=== PATIENT | female | born 1995 | race American Indian/Alaskan Native ===

== ENCOUNTER 2019-12-13 19:41 | Emergency (ER) | payer BC ==
[2019-12-13 21:31] VITALS: BP 150/92
--- NOTE | 2019-12-13 21:34 | Emergency Department Report ---
Blank Doc - Documentation Documentation: This is a 36-year-old male that presents with concerned manic attack. Denies any SI/HI. This initial assessment/diagnostic orders/clinical plan/treatment(s) is/are subject to change based on patient's health status, clinical progression and re- assessment by fellow clinical providers in the ED. Further treatment and workup at subsequent clinical providers discretion. Patient/guardians urged not to elope from the ED as their condition may be serious if not clinically assessed and managed. Initial orders include: 1- Patient sent to MAIN ED for further evaluation and treatment 2- orchard manager was notified to have patient be brought back [facility]. 3- RN was notified to keep patient as close range and observation until room available
[2019-12-13 22:35] LABS: Blood Urea Nitrogen 5 mg/dL (7-17); Calcium 9.6 mg/dL (8.4-10.2); Hemolysis Index 2
[2019-12-13 22:41] LABS: Amphetamine Screen,Urine PRESUMPTIVE NEGATIVE; Benzodiazepines Screen,Urine PRESUMPTIVE NEGATIVE; Cannabinoid Screen,Urine PRESUMPTIVE NEGATIVE; Cocaine Screen,Urine PRESUMPTIVE NEGATIVE; Methadone Screen,Urine PRESUMPTIVE NEGATIVE; Opiate Screen,Urine PRESUMPTIVE NEGATIVE
[2019-12-13 22:46] LABS: BUN/Creatinine Ratio 8
[2019-12-13 22:52] LABS: Basophils # (Auto) 0.1 K/mm3 (0.0-0.1); Basophils % (Auto) 0.8 % (0.0-1.8); Eosinophils # (Auto) 0.2 K/mm3 (0.0-0.4); Eosinophils % (Auto) 2.6 % (0.0-4.3); Hematocrit 39.6 % (30.3-42.9); Hemoglobin 12.9 gm/dl (10.1-14.3); Lymphocytes # (Auto) 2.5 K/mm3 (1.2-5.4); Mean Corpuscular HGB Conc 33 % (30-34); Mean Corpuscular Volume 83 fl (79-97); Monocytes # (Auto) 0.6 K/mm3 (0.0-0.8); Monocytes % (Auto) 7.5 % (0.0-7.3); Platelet Count 317 K/mm3 (140-440); Red Blood Count 4.79 M/mm3 (3.65-5.03); Red Cell Distribution Width 13.4 % (13.2-15.2)
[2019-12-13 23:07] LABS: Bilirubin,Urine NEG (Negative); Blood,Urine NEG (Negative); Color,Urine Yellow (Yellow); Mucus,Urine FEW /HPF; Protein,Urine <15 mg/dL mg/dL (Negative); Urobilinogen,Urine < 2.0 mg/dL (<2.0)
[2019-12-13 23:12] LABS: HCG Qualitative,Urine Negative (Negative)
--- NOTE | 2019-12-13 23:13 | Emergency Department Report ---
HPI - General Chief Complaint: Psych Time Seen by Provider: 12/13/19 21:30 - HPI HPI: This is a 24-year-old female presents to the emergency department for a mental health evaluation. The patient was seeing her therapist, Paty Tomas, through a telehealth appointment when she says that she began having a "catatonic episode." The patient says that the therapist then felt it was best that she came to the emergency department for evaluation. Her psychiatrist recommended that she write down some recent symptoms that she has been having. The full l ist has been placed on the chart, but it is a combination of statements of fact, tangential thoughts, and description of symptoms. At the time of my examination the patient is awake, alert, oriented, calm and appropriate. She admits to history of schizoaffective disorder. She denies any illicit drugs or alcohol abuse. She does have a psychiatrist, Dr. Ibarra. The patient says that she recently had her medications changed. She is on buspirone, escitalopram, zolpidem, paliperidone. She denies any suicidal or homicidal ideations. ED Past Medical Hx - Past Medical History Previous Medical History?: Yes Hx Psychiatric Treatment: Yes (schizoaffective disorder) - Social History Smoking Status: Never Smoker Substance Use Type: None - Medications Home Medications: Home Medications Medication Instructions Recorded Confirmed Last Taken Type Buspirone HCl 10 mg PO TID 12/13/19 12/13/19 Unknown History Escitalopram 10 mg PO DAILY 12/13/19 12/13/19 Unknown History Omeprazole 20 mg PO DAILY 12/13/19 12/13/19 Unknown History Paliperidone 3 mg PO DAILY 12/13/19 12/13/19 Unknown History Paliperidone 9 mg PO HS 12/13/19 12/13/19 Unknown History Zolpidem Tartrate 5 mg PO HS 12/13/19 12/13/19 Unknown History Acetaminophen 325 mg PO QDAY #1 capsule 12/14/19 Unknown Rx ED Review of Systems ROS: Stated complaint: CATATONIC EPISODE Other details as noted in HPI Comment: All other systems reviewed and negative Constitutional: denies: chills, fever Respiratory: denies: cough, shortness of breath Cardiovascular: denies: chest pain, palpitations Gastrointestinal: denies: abdominal pain, vomiting Musculoskeletal: denies: back pain, arthralgia Neurological: denies: numbness, paresthesias Psychiatric: denies: homicidal thoughts, suicidal thoughts Physical Exam - Physical Exam Vital Signs: Vital Signs 12/13/19 20:49 Temperature 98.4 F Pulse Rate 97 H Respiratory 17 Rate Blood Pressure 150/92 O2 Sat by Pulse 100 Oximetry Physical Exam: GENERAL: The patient is well-developed well-nourished. HENT: Normocephalic. Atraumatic. Patient has moist mucous membranes. EYES: Extraocular motions are intact. NECK: Supple. Trachea is midline. CHEST/LUNGS: Clear to auscultation. There is no respiratory distress noted. HEART/CARDIOVASCULAR: Regular. There is no tachycardia. ABDOMEN: Abdomen is soft, nontender. Patient has normal bowel sounds. SKIN: Skin is warm and dry. NEURO: The patient is awake, alert, and oriented. The patient is cooperative. The patient has no focal neurologic deficits. Normal speech. MUSCULOSKELETAL: There is no tenderness or deformity. There is no limitation range of motion. ED Course Vital Signs 12/13/19 20:49 Temperature 98.4 F Pulse Rate 97 H Respiratory 17 Rate Blood Pressure 150/92 O2 Sat by Pulse 100 Oximetry ED Medical Decision Making - Lab Data Result diagrams: 12/13/19 22:00 12/13/19 22:00 - Medical Decision Making This patient, with a history of schizoaffective disorder, presents for a metab olic evaluation after she allegedly had a catatonic episode while on a telemedicine visit with her therapist. At the time of my examination the patient is awake, alert, oriented, calm and appropriate. She does not express any suicidal or homicidal ideations or show signs of any acute psychosis. She was seen by the psychiatric overhead crane operator who agrees that the patient does not appear to meet criteria for a 1013 will require inpatient stabilization. Her labs have been unremarkable including CBC, metabolic panel, blood alcohol level, urinalysis and UDS. Vital signs reassuring throughout her ED course. The patient has good outpatient follow-up with both a therapist and psychiatrist, and has also been given some other outpatient psychiatric referrals. She has been instructed to return to the emergency department with any worsening of her symptoms, thoughts of harming herself or others, or with any acute distress. Critical Care Time: No Critical care attestation.: If time is entered above; I have spent that time in minutes in the direct care of this critically ill patient, excluding procedure time. ED Disposition Clinical Impression: Schizoaffective disorder Qualifiers: Schizoaffective disorder type: unspecified Qualified Code(s): F25.9 - S chizoaffective disorder, unspecified Disposition: DC-01 TO HOME OR SELFCARE Is pt being admited?: No Condition: Stable Instructions: Schizoaffective Disorder (ED) Additional Instructions: Please follow-up with your primary care physician and psychiatrist in the next few days. Return to the emergency department with any worsening of your symptoms, thoughts of harming yourself or others, or with any acute distress. Professional and Agency Contacts To help [facility](02/09) ID Crisis Line: Suicide Prevention Line: Crisis Text Line: Text START to 476203 Emergency: 911 Outpatient [facility] Behavioral Health Resources: MIRELLA: [facility] [address] [place], [place] [address] [facility] - [address] [place] [address] Friday thru Friday - 8am - 5pm [facility]: [facility] Address: [address] [place] [address] Friday thru Friday- 7am-2pm [facility] Address: [address] [place] [address] Friday thru Friday: 8:30AM-5PM Prescriptions: Acetaminophen 325 mg PO QDAY #1 capsule Referrals: Psychiatrist, Your [Other] - 2-3 Days Forms: Work/School Release Form(ED) Time of Disposition: 23:14
== END 2019-12-14 00:18 | disposition home or self-care (01) ==
LOC: ED 19:41
DX: F25.9 Schizoaffective disorder, unspecified (principal); Z79.899 Other long term (current) drug therapy
CPT/HCPCS: 36415; 80048; 80307; 80320; 81001; 81025; 85025; 87086; G0480